=== PATIENT | male | born 1930 | race Caucasian/White ===

== ENCOUNTER → 2017-04-27 | Outpatient (CLI) | payer MEDICARE ==
[~2017-04-27] MED LIST: ACETAMINOPHEN650 M1 PO; ANDROGEL5 GM TD; FLORINEF ACETA0.1 MG PO; LORTAB 7.5-5001 TAB PO; SYNTHROID PO
--- NOTE | ~2017-04-27 | US85 ---
STS. [facility] A Service of [facility] & [facility] RADIOLOGY TEXT RESULTS PATIENT: LYNDA CORBIN LOCATION: SNIV : [birth year] UNIT #: [id number] AGE: [address]: Duc Thorne MD SEX: M ORDER DR: [id number] [address] [id number] O MR#: [id number] Acc #: [id number] NAME: LYNDA CORBIN : 1930 SEX: M STUDY DATE/TIME: 04/27/2017 8:43 UNIT: SNIV ROOM: STUDY DESCRIPTION: [facility] [place] Veins Unilat or Ltd Stdy Attending Physician: Duc Thorne M.D. Referring Physician: Duc Thorne M.D. Ordering Physician: Duc Thorne M.D. Primary Care Physician: Duc Thorne M.D. MEDICAL IMAGING REPORT This report is preliminary unless electronic signature is present. EXAM Right lower extremity venous Doppler. HISTORY 86-year-old male with right lower extremity swelling x1 week. No prior DVT. Swelling after a fall. FINDINGS 2-D and Doppler evaluation of the right lower extremity demonstrates normal flow and compressibility of the deep and superficial veins within the right lower extremity. No intraluminal thrombus is identified. There is pulsatile flow within the right common femoral vein and superficial femoral vein. This may be indicative of elevated right heart pressures. IMPRESSION 1. No sonographic evidence of DVT within the right lower extremity. 2. Pulsatile flow noted within the proximal deep veins particularly the common femoral vein and superficial femoral vein. This may be indicative of elevated right heart pressures. 1. Dictated by... Jhoana Jauregui M.D. THIS IS AN ELECTRONICALLY VERIFIED REPORT Jhoana Jauregui M.D. at 04/28/2017 7:28 AM JEANETH/aaron TD: 04/27/2017 14:04 JOB #: [id number] MEDICAL IMAGING REPORT Page 1 of 1
== END | disposition home or self-care (01) ==
LOC: SNIV 08:09
DX: M79.89 Other specified soft tissue disorders (principal)
CPT/HCPCS: 93971